=== PATIENT | male | born 1990 | race Caucasian/White ===

== ENCOUNTER 2023-03-02 01:46 | Emergency (ER) | payer SELFPAY ==
[2023-03-02] MEDS ORDERED: Sodium Chloride 0.9% 10 ML Syringe FLUSH PRN (02:17)
[2023-03-02] MEDS ORDERED: Ketorolac 30 MG/ML SDV IVPUSH ONE (02:20)
[2023-03-02 02:48] LABS: ESTIMATED GFR 75 mL/min (>60)
[2023-03-02] MEDS ORDERED: Morphine 4 MG/ML Syringe IVPUSH ONE (02:54)
[2023-03-02] MEDS ORDERED: Ketorolac 10 MG Tab PO ONE (03:39)
== END 2023-03-02 03:54 | disposition home or self-care (01) ==
LOC: JD.ED 01:46
DX: N13.2 Hydronephrosis with renal and ureteral calculous obstruction (principal)
CPT/HCPCS: 36415; 74176; 80053; 81001; 85025; 96374; 96375; 99284; A9270; J1885; J2270; J3490